=== PATIENT | female | born 1940 | race African-American/Black ===

== ENCOUNTER 2019-03-28 17:17 | Inpatient (IN) | payer MEDICARE, MEDICAID ==
[~2019-03-28] VITALS: Ht 165.1 cm; Wt 74.5 kg
[~2019-03-28 17:17] MED LIST: NAPROSYN500 M1 ORAL; TYLENOL EXTRA500 MG ORAL
[2019-03-28 17:25] VITALS: BP 125/82
--- NOTE | 2019-03-28 17:25 | NUR ---
ED Nurse Note: Pt was admitted to ED with the c/o of dyspnea and swelling arm. Pt is awake, alert, calm, able to verbalized her needs and able to follow commands. Placed on bed and gown, hooked to cardiac rehab nurse. Pt has a hx of CHF. Placed on supplemental oxygen of 2 liters per min per ERMD. Will continue to monitor.
[2019-03-28] MEDS ORDERED: ELIQUIS5 MG PO (17:27)
--- NOTE | 2019-03-28 17:30 | NUR ---
ED Nurse Note: Established IV site on LT AC with 22G intact and patent, obtained blood specimen sent to lab.
--- NOTE | 2019-03-28 17:40 | NUR ---
ED Nurse Note: Xray on bedside.
--- NOTE | 2019-03-28 17:50 | NUR ---
ED Nurse Note: Xray done.
--- NOTE | 2019-03-28 17:58 | NUR ---
ED Nurse Note: ABG done.
[2019-03-28 18:03] LABS: BASOPHILS % (AUTO) 1.2 % (0.0-2.0); EOSINOPHILS % (AUTO) 4.1 % (0.0-3.0); HEMATOCRIT 42.2 % (37.0-47.0); HEMOGLOBIN 13.7 G/DL (12.0-16.0); LYMPHOCYTES % (AUTO) 31.4 % (20.0-45.0); MEAN CORPUSCULAR VOLUME 93 FL (80-99); MONOCYTES % (AUTO) 6.7 % (1.0-10.0); NEUTROPHILS % (AUTO) 56.6 % (45.0-75.0); PLATELET COUNT 190 K/UL (150-450); RED BLOOD COUNT 4.55 M/UL (4.20-5.40); RED CELL DISTRIBUTION WIDTH 12.7 % (11.6-14.8)
[2019-03-28 18:16] LABS: ANION GAP 9 mmol/L (5-15); BLOOD UREA NITROGEN 18 mg/dL (7-18); CALCIUM 9.3 MG/DL (8.5-10.1); CARBON DIOXIDE 27 MMOL/L (21-32); CHLORIDE 104 MMOL/L (98-107); CREATININE 0.8 MG/DL (0.55-1.30); POTASSIUM 4.8 MMOL/L (3.5-5.1); SODIUM 140 MMOL/L (136-145)
[2019-03-28 18:29] LABS: ALANINE AMINOTRANSFERASE 17 U/L (12-78); ALBUMIN 3.7 G/DL (3.4-5.0); ALBUMIN/GLOBULIN RATIO 0.8 (1.0-2.7); ALKALINE PHOSPHATASE 70 U/L (46-116); ASPARTATE AMINO TRANSFERASE 14 U/L (15-37); BILIRUBIN,TOTAL 0.5 MG/DL (0.2-1.0)
[2019-03-28] MEDS ORDERED: METFORMIN HCL500 M1 ORAL (18:43)
[2019-03-28] MEDS ORDERED: DILTIAZEM 24HR180 M3 ORAL (18:43)
[2019-03-28] MEDS ORDERED: OMEPRAZOLE40 M1 ORAL (18:43)
[2019-03-28] MEDS ORDERED: VITAMIN D22000 UNIT PO (18:43)
[2019-03-28] MEDS ORDERED: STIOLTO RESPIMAT4 GM IH (18:43)
[2019-03-28] MEDS ORDERED: NAPROXEN500 M2 ORAL (18:43)
[2019-03-28] MEDS ORDERED: Calcium Gluconate 1gm/10ml vial IVP ONE (19:00)
--- NOTE | 2019-03-28 19:07 | Emergency Room Report ---
History of Present Illness General Chief Complaint: Dyspnea/Respdistress Source: Patient, Family Member Present Illness HPI 78-year-old female presents ED for evaluation. Daughter at bedside states that patient's been feeling short of breath for the last 4 to 5 days. History of COPD and CHF. She is normally on home oxygen but due to change in insurance oxygen was stopped and the tanks were taken away. History of CHF. Notes some leg swelling. Denies chest pain. Denies fevers or chills. States she is otherwise compliant with her medications. No other aggravating relieving factors. Denies any other associated symptoms Allergies: Coded Allergies: No Known Allergies (Unverified , 02/07/14) Patient History Past Medical History: DM, HTN, CHF, COPD Past Surgical History: none Pertinent Family History: none Social History: Denies: smoking, alcohol use, drug use Now: No Immunizations: UTD Reviewed Nursing Documentation: PMH: Agreed; PSxH: Agreed Nursing Documentation-PMH Past Medical History: No History, Except For Hx Cardiac Problems: Yes - CHF Hx Hypertension: Yes Hx Asthma: No Hx COPD: Yes Hx Diabetes: Yes Hx Cerebrovascular Accident: No Review of Systems All Other Systems: negative except mentioned in HPI Physical Exam Vital Signs Date Time Temp Pulse Resp B/P (MAP) Pulse Ox O2 Delivery O2 Flow Rate FiO2 03/28/19 17:23 97.0 88 21 128/65 (86) 100 Room Air 03/28/19 17:25 2.0 Sp02 EP Interpretation: reviewed, normal General Appearance: no apparent distress, alert, GCS 15, non-toxic Head: normocephalic, atraumatic Eyes: bilateral eye normal inspection, bilateral eye PERRL ENT: hearing grossly normal, normal pharynx, no angioedema, normal voice Neck: full range of motion, supple/symm/no masses Respiratory: chest non-tender, lungs clear, normal breath sounds, speaking full sentences Cardiovascular #1: regular rate, rhythm, no edema Cardiovascular #2: 2+ carotid (R), 2+ carotid (L), 2+ radial (R), 2+ radial (L) , 2+ dorsalis pedis (R), 2+ dorsalis pedis (L) Gastrointestinal: normal bowel sounds, non tender, soft, non-distended, no guarding, no rebound Rectal: deferred Genitourinary: normal inspection, no CVA tenderness Musculoskeletal: back normal, normal range of motion, gait/station normal, swelling - 1+ pitting edema b/l LEs Neurologic: alert, motor strength/tone normal, oriented x3, sensory intact, responsive, speech normal Psychiatric: judgement/insight normal, memory normal, mood/affect normal, no suicidal/homicidal ideation Reflexes: 3+ bicep (R), 3+ bicep (L), 3+ tricep (R), 3+ tricep (L), 3+ knee (R) , 3+ knee (L) Skin: other - see nursig skin notes Lymphatic: no adenopathy Medical Decision Making Diagnostic Impression: Primary Impression: CHF exacerbation Qualified Codes: I50.9 - Heart failure, unspecified Additional Impressions: COPD (chronic obstructive pulmonary disease) Qualified Codes: J44.9 - Chronic obstructive pulmonary disease, unspecified Bradycardia ER Course Hospital Course 78-year-old female presents ED complaining of shortness of breath, leg swelling Differential diagnoses include: MN/unstable angina, contusion, muscle strain, PTX, rib fracture Clinical course Patient placed on stretcher. on monitor worker. After initial history and physical I ordered labs, EKG, chest x-ray labs reviewed- no leukocytosis, hemoglobin/hematocrit stable, creatinine elevated, troponins negative, BNP elevated EKG - sinus bradycardia twave inversions in lateral leads interpreted by me Chest x-ray- cardiomegaly ABG no signfiicant hypoxia or hypercapnia Patient bradycardic to the 40s however denying any dizziness. patient normotensive. Mentating appropriately. Patient is on diltiazem. Given calcium in ED. No indication for pacing at this time. Because of insurance patient will be transferred I. I feel this is a highly complex case requiring extensive working including EKG/Rhythm strip, Xray/CT/US, Blood/urine lab work, repeat exams while in ED, and administration of strong opiates/narcotics for pain control, admission to hospital or close patient follow up. Diagnosis - CHF exacerbation, COPD, bradycardia transferred in serious condition Labs Test 03/28/19 17:41 03/28/19 17:55 Arterial Blood pH 7.391 (7.350-7.450) Arterial Blood Partial Pressure CO2 40.7 mmHg (35.0-45.0) Arterial Blood Partial Pressure O2 72.7 mmHg (75.0-100.0) Arterial Blood HCO3 24.1 mmol/L (22.0-26.0) Arterial Blood Oxygen Saturation 93.1 % (95-100) Arterial Blood Base Excess -0.7 (-2-2) Renny Test Positive White Blood Count 6.0 K/UL (4.8-10.8) Red Blood Count 4.55 M/UL (4.20-5.40) Hemoglobin 13.7 G/DL (12.0-16.0) Hematocrit 42.2 % (37.0-47.0) Mean Corpuscular Volume 93 FL (80-99) Mean Corpuscular Hemoglobin 30.0 PG (27.0-31.0) Mean Corpuscular Hemoglobin Concent 32.3 G/DL (32.0-36.0) Red Cell Distribution Width 12.7 % (11.6-14.8) Platelet Count 190 K/UL (150-450) Mean Platelet Volume 6.2 FL (6.5-10.1) Neutrophils (%) (Auto) 56.6 % (45.0-75.0) Lymphocytes (%) (Auto) 31.4 % (20.0-45.0) Monocytes (%) (Auto) 6.7 % (1.0-10.0) Eosinophils (%) (Auto) 4.1 % (0.0-3.0) Basophils (%) (Auto) 1.2 % (0.0-2.0) Sodium Level 140 MMOL/L (136-145) Potassium Level 4.8 MMOL/L (3.5-5.1) Chloride Level 104 MMOL/L (98-107) Carbon Dioxide Level 27 MMOL/L (21-32) Anion Gap 9 mmol/L (5-15) Blood Urea Nitrogen 18 mg/dL (7-18) Creatinine 0.8 MG/DL (0.55-1.30) Estimat Glomerular Filtration Rate mL/min (>60) Glucose Level 138 MG/DL (74-106) Calcium Level 9.3 MG/DL (8.5-10.1) Total Bilirubin 0.5 MG/DL (0.2-1.0) Aspartate Amino Transf (AST/SGOT) 14 U/L (15-37) Alanine Aminotransferase (ALT/SGPT) 17 U/L (12-78) Alkaline Phosphatase 70 U/L (46-116) Troponin I 0.006 ng/mL (0.000-0.056) Pro-B-Type Natriuretic Peptide 740 pg/mL (0-125) Total Protein 8.2 G/DL (6.4-8.2) Albumin 3.7 G/DL (3.4-5.0) Globulin 4.5 g/dL Albumin/Globulin Ratio 0.8 (1.0-2.7) EKG Diagnostic Results Rate: bradycardiac Rhythm: NSR ST Segments: no acute changes ASA given to the pt in ED: No Rhythm Strip Diag. Results EP Interpretation: yes Rhythm: NSR, no PVC's, no ectopy Chest X-Ray Diagnostic Results Chest X-Ray Diagnostic Results : Chest X-Ray Ordered: Yes # of Views/Limited/Complete: 1 View Indication: Shortness of Breath EP Interpretation: Yes Interpretation: no pneumothorax, other - cardiomegaly Impression: Other - CHF Electronically Signed by: Electronically signed by Nabil Bojorquez MD Last Vital Signs Date Time Temp Pulse Resp B/P (MAP) Pulse Ox O2 Delivery O2 Flow Rate FiO2 03/28/19 17:25 97.2 55 18 125/82 98 Nasal Cannula 2.0 Status: improved Disposition: XFER SHT-TRM HOSP Condition: Serious Referrals: Edson Cruz DO (PCP) Nabil Bojorquez MD Mar 28, 2019 19:07
--- NOTE | 2019-03-28 19:13 | NUR ---
HAND-OFF: Report given to KAE Broussard.
--- NOTE | 2019-03-28 19:15 | NUR ---
ED Nurse Note: Received report from KAE Houser.
[2019-03-28 19:17] VITALS: BP 130/68
--- NOTE | 2019-03-28 19:19 | NUR ---
ED Nurse Note: Patient sinus bradycardia, asymptomatic, ERMD aware.
--- NOTE | 2019-03-28 19:42 | NUR ---
ED Nurse Note: Patient assisted to void using bedpan, tolerated well.
--- NOTE | 2019-03-28 21:35 | NUR ---
ED Nurse Note: Report given to KAE Card at INU.
--- NOTE | 2019-03-28 21:40 | NUR ---
ED Nurse Note: Patient transported via gurney to SDU for Tele on monitor with 1 RN and technician inventory specialist in stable condition.
[2019-03-28] MEDS ORDERED: Albuterol/Ipratropium 3ml neb HHN PRN (22:00)
[2019-03-28] MEDS ORDERED: Miralax 17gm pkt ORAL PRN (22:00)
--- NOTE | 2019-03-28 22:00 | NUR ---
NURSE NOTES: pt received from [facility]. pt remains stable. pt is alert and oriented times 4, able to follow commands. pt is on 2 L NC, able to sat at 98%, no distress noted. pt is on desk monitor showing NSR, no distress noted. pt bed is low, locked, armed, bed rails up times 3. will follow plan of care. pt brought up with belongings. family member by bed side.
[2019-03-29] VITALS: BP_SYST 106; BP_SYST 130; BP_DIAS 40; BP_DIAS 71
[2019-03-29 04:00] VITALS: BP 134/74
[2019-03-29 05:58] LABS: ANION GAP 7 mmol/L (5-15); BLOOD UREA NITROGEN 18 mg/dL (7-18); CALCIUM 8.8 MG/DL (8.5-10.1); CARBON DIOXIDE 29 MMOL/L (21-32); CHLORIDE 105 MMOL/L (98-107); CREATININE 0.8 MG/DL (0.55-1.30); POTASSIUM 3.9 MMOL/L (3.5-5.1); SODIUM 141 MMOL/L (136-145)
[2019-03-29] MEDS: NovoLOG Insulin Flexpen SUBQ SCH ×3 (06:27→16:30)
--- NOTE | 2019-03-29 07:30 | NUR ---
HAND-OFF: Report given to TONYA PAL TELE. Pt remains stable. pt transferred with all belongings.
[2019-03-29 08:00] VITALS: BP 126/76
[2019-03-29] MEDS ORDERED: dilTIAZem HCl CD 180mg cap ORAL SCH (09:00)
--- NOTE | 2019-03-29 09:00 | NUR ---
PATIENT A/ O X 4 , VIATL SIGNS STABLE. NO C/O PAIN . SKIN INTACT OXYGEN SAT 96% @ 2 L N/A. IV INTACT AND PATENT. ALL NEEDS MET AND CALL LIGHT WITH IN REACH, BED ALARM ON, RAILS UP X 2 FOR SAFETY REASONS.
[2019-03-29] MEDS: Eliquis 5mg tablet ORAL SCH ×2 (09:42→17:23)
--- NOTE | 2019-03-29 11:15 | NUR ---
TRANSFER UPDATE RECEIVED CALL FROM [facility], [place] T: [phone] PATIENT IS OUT OF NETWORK AND DOES NOT BELONG AT [facility] PER [place] PATIENT HAS A BED AT [facility] T: [phone] FOR NURSE TO NURSE REPORT FOR TRANSPORT USE "[facility]" AUTH #[id number] ACCEPTING PHYSICIAN IS DR ALDANA PER DR HUGHES HE WILL BE IN THIS AFTERNOON AND WILL DECIDE IF PATIENT IS STABLE FOR TRANSFER Addendum: 03/29/19 at 1212 by ARIK SHELTON LVN PICKUP TIME @1:30PM
--- NOTE | 2019-03-29 11:30 | NUR ---
CARDIOLOGY: LUIZ BOWER [id number] ROOM 211-1 2-D ECHO REPORT : Normal left ventriuclar chamber size . Global left ventricular hypokiensis . Left ventricular ejection fraction estimated to be 40 %. Mild left ventricular hypertrophy. No pericardial effusion. Right atrial size at upper limits of normal. Left atrial chamber size is within normal limits. Focal aortic valve sclerosis with adequate cusp excursion. Thickened mitral valve leaflets with normal excursion. Moderate mitral annulus and aortic root calcification. Pulmonic valve not well visualized. Normal tricuspid valve structure. IVC at size 2.1 cm without physiologic collapse. A color flow and spectral Doppler study was performed and revealed: No aortic insufficiency. Trace mitral regurgitation. Mitral diastolic velocities suggest reduced left ventricular relaxation c/w mild LV diastolic dysfunction (Grade I ). Trace tricuspid regurgitation. Tricuspid systolic velocities suggests peak right ventricular systolic pressure of 18mmHg.
--- NOTE | 2019-03-29 11:48 | Consultation ---
History of Present Illness General Date patient seen: Mar 29, 2019 Chief Complaint: Dyspnea/Respdistress Present Illness HPI 78-year-old female with hx of DM, HTN, CHF, COPD, on home O2 presented to ED for evaluation of short of breath for the last 4 to 5 days. She has some leg swelling as well. Denies chest pain. Denies fevers or chills. She was found to be pulmonary edema and is admitted to telemetry for further management. Allergies: Coded Allergies: No Known Allergies (Unverified , 02/07/14) Medication History Scheduled Apixaban (Eliquis), 5 MG PO BID, (Reported) Diltiazem HCl (Diltiazem 24HR Cd), 360 MG ORAL DAILY, (Reported) Ergocalciferol (Vitamin D2) (Vitamin D2), 50,000 UNIT PO QWEEK, (Reported) Metformin Hcl* (Metformin Hcl*), 500 MG ORAL TWICE A DAY, (Reported) Naproxen* (Naproxen*), 500 MG ORAL TWICE A DAY, (Reported) Omeprazole (Omeprazole), 40 MG ORAL DAILY, (Reported) Tiotropium Br/Olodaterol HCl (Stiolto Respimat Inhal Adel), 4 GM IH PRN, ( Reported) Discontinued Medications Acetaminophen* (Tylenol Extra Strength*), 500 MG ORAL Q8H PRN for Prn Headache/ Temp > 101 Discontinued Reason: Pt stopped taking med Naproxen* (Naprosyn*), 500 MG ORAL TWICE A DAY Discontinued Reason: Pt stopped taking med Patient History Healthcare decision maker pt self. Resuscitation status Full Code Advanced Directive on File No Past Medical/Surgical History Past Medical/Surgical History: (1) Diabetes mellitus (2) COPD (chronic obstructive pulmonary disease) (3) Osteoarthritis Review of Systems All Other Systems: negative except mentioned in HPI Physical Exam General Appearance: WD/WN Lines, tubes and drains: peripheral HEENT: normocephalic, atraumatic Neck: non-tender, normal alignment Respiratory/Chest: chest wall non-tender, lungs clear Breasts: no masses Cardiovascular/Chest: normal peripheral pulses Abdomen: normal bowel sounds Genitourinary/Rectal: normal genital exam Extremities: normal range of motion Skin Exam: normal pigmentation Neurologic: sole splitter II-XII grossly normal Last 24 Hour Vital Signs Date Time Temp Pulse Resp B/P (MAP) Pulse Ox O2 Delivery O2 Flow Rate FiO2 03/29/19 09:41 95 126/76 03/29/19 08:00 96.7 95 20 126/76 (93) 95 03/29/19 08:00 Nasal Cannula 2.0 03/29/19 07:02 92 Nasal Cannula 2.0 28 03/29/19 07:02 60 15 92 Nasal Cannula 2.0 28 03/29/19 04:00 97.5 60 16 134/74 (94) 98 03/29/19 04:00 Nasal Cannula 2.0 03/29/19 04:00 58 03/29/19 04:00 2.0 03/29/19 00:00 57 03/29/19 00:00 2.0 03/29/19 00:00 97.3 60 19 130/71 (90) 93 03/29/19 00:00 Nasal Cannula 2.0 03/28/19 23:07 Nasal Cannula 2.0 03/28/19 22:00 53 03/28/19 21:40 97.5 44 17 132/82 98 Nasal Cannula 2.0 03/28/19 20:42 97.0 03/28/19 19:17 97.0 43 19 130/68 96 Nasal Cannula 2.0 03/28/19 17:25 97.2 55 18 125/82 98 Nasal Cannula 2.0 03/28/19 17:25 86 18 Room Air 03/28/19 17:23 97.0 88 21 128/65 (86) 100 Room Air Intake and Output 03/28/19 03/29/19 19:00 07:00 Intake Total 0 ml Output Total 900 ml Balance -900 ml Intake Oral 0 ml Output Urine Total 900 ml # Voids 3 Laboratory Tests Test 03/28/19 17:41 03/28/19 17:55 03/29/19 04:20 Arterial Blood pH 7.391 (7.350-7.450) Arterial Blood Partial Pressure CO2 40.7 mmHg (35.0-45.0) Arterial Blood Partial Pressure O2 72.7 mmHg (75.0-100.0) L Arterial Blood HCO3 24.1 mmol/L (22.0-26.0) Arterial Blood Oxygen Saturation 93.1 % (95-100) L Arterial Blood Base Excess -0.7 (-2-2) Renny Test Positive White Blood Count 6.0 K/UL (4.8-10.8) Red Blood Count 4.55 M/UL (4.20-5.40) Hemoglobin 13.7 G/DL (12.0-16.0) Hematocrit 42.2 % (37.0-47.0) Mean Corpuscular Volume 93 FL (80-99) Mean Corpuscular Hemoglobin 30.0 PG (27.0-31.0) Mean Corpuscular Hemoglobin Concent 32.3 G/DL (32.0-36.0) Red Cell Distribution Width 12.7 % (11.6-14.8) Platelet Count 190 K/UL (150-450) Mean Platelet Volume 6.2 FL (6.5-10.1) L Neutrophils (%) (Auto) 56.6 % (45.0-75.0) Lymphocytes (%) (Auto) 31.4 % (20.0-45.0) Monocytes (%) (Auto) 6.7 % (1.0-10.0) Eosinophils (%) (Auto) 4.1 % (0.0-3.0) H Basophils (%) (Auto) 1.2 % (0.0-2.0) Sodium Level 140 MMOL/L (136-145) 141 MMOL/L (136-145) Potassium Level 4.8 MMOL/L (3.5-5.1) 3.9 MMOL/L (3.5-5.1) Chloride Level 104 MMOL/L (98-107) 105 MMOL/L (98-107) Carbon Dioxide Level 27 MMOL/L (21-32) 29 MMOL/L (21-32) Anion Gap 9 mmol/L (5-15) 7 mmol/L (5-15) Blood Urea Nitrogen 18 mg/dL (7-18) 18 mg/dL (7-18) Creatinine 0.8 MG/DL (0.55-1.30) 0.8 MG/DL (0.55-1.30) Estimat Glomerular Filtration Rate mL/min (>60) mL/min (>60) Glucose Level 138 MG/DL (74-106) H 93 MG/DL (74-106) Calcium Level 9.3 MG/DL (8.5-10.1) 8.8 MG/DL (8.5-10.1) Total Bilirubin 0.5 MG/DL (0.2-1.0) Aspartate Amino Transf (AST/SGOT) 14 U/L (15-37) L Alanine Aminotransferase (ALT/SGPT) 17 U/L (12-78) Alkaline Phosphatase 70 U/L (46-116) Troponin I 0.006 ng/mL (0.000-0.056) 0.011 ng/mL (0.000-0.056) Pro-B-Type Natriuretic Peptide 740 pg/mL (0-125) H Total Protein 8.2 G/DL (6.4-8.2) Albumin 3.7 G/DL (3.4-5.0) Globulin 4.5 g/dL Albumin/Globulin Ratio 0.8 (1.0-2.7) L Height (Feet): 5 Height (Inches): 5.00 Weight (Pounds): 164 Medications Current Medications Medications (Trade) Dose Ordered Sig/Cherrie Route PRN Reason Start Time Stop Time Status Last Admin Dose Admin Acetaminophen (Tylenol) 650 mg Q4H PRN ORAL Fever 03/28/19 22:00 04/27/19 21:59 03/29/19 01:37 Albuterol/ Ipratropium (Albuterol/ Ipratropium) 3 ml EVERY 4 HOURS PRN HHN Shortness of Breath 03/28/19 22:00 04/02/19 21:59 Apixaban (Eliquis) 5 mg BID ORAL 03/29/19 09:00 04/28/19 08:59 03/29/19 09:42 Dextrose (Dextrose 50%) 25 ml Q30M PRN IV Hypoglycemia 03/28/19 22:00 04/27/19 21:59 Dextrose (Dextrose 50%) 50 ml Q30M PRN IV Hypoglycemia 03/28/19 22:00 04/27/19 21:59 Diltiazem HCl (Cardizem CD) 360 mg DAILY ORAL 03/29/19 09:00 04/28/19 08:59 03/29/19 09:41 Furosemide (Lasix) 40 mg EVERY 8 HOURS IV 03/28/19 22:00 04/27/19 21:59 03/29/19 06:28 Insulin Aspart (NovoLOG) BEFORE MEALS AND HS SUBQ 03/29/19 06:30 04/28/19 06:29 Ondansetron HCl (Zofran) 4 mg Q6H PRN IVP Nausea & Vomiting 03/28/19 22:00 04/27/19 21:59 Polyethylene Glycol (Miralax) 17 gm DAILYPRN PRN ORAL Constipation 03/28/19 22:00 04/27/19 21:59 Temazepam (Restoril) 15 mg HSPRN PRN ORAL Insomnia 03/28/19 22:00 04/04/19 21:59 Assessment/Plan Problem List: (1) CHF exacerbation ICD Codes: I50.9 - Heart failure, unspecified SNOMED: 779427134, [id number] Qualifiers: Qualified Codes: I50.9 - Heart failure, unspecified (2) COPD (chronic obstructive pulmonary disease) ICD Codes: J44.9 - Chronic obstructive pulmonary disease, unspecified SNOMED: 51938826 Qualifiers: Qualified Codes: J44.9 - Chronic obstructive pulmonary disease, unspecified (3) Diabetes mellitus ICD Codes: E11.9 - Type 2 diabetes mellitus without complications SNOMED: 46371046 (4) On home O2 ICD Codes: Z99.81 - Dependence on supplemental oxygen SNOMED: 887017916332 Assessment/Plan: respiratory treatment titrate fio2 diuretic echo check cxr and bnp in am Austin Acevedo MD Mar 29, 2019 11:48
[2019-03-29] MEDS ORDERED: DEMADEX10 MG IV (11:49)
[2019-03-29 12:11] VITALS: BP 131/67
--- NOTE | 2019-03-29 14:08 | NUR ---
RADIOLOGY DEPT., CHEST X-RAY PERFORMED ON ADMIT.OLIMPIA
--- NOTE | 2019-03-29 14:20 | NUR ---
PATIENT REFUSED TO BE DISCHARGE ORDERED BY HCP. DIETETIC ASSISTANT / CHARGE NURSE NOTIFIED, HCP MADE AWARE.
[2019-03-29 16:00] VITALS: BP 145/79
--- NOTE | 2019-03-29 16:50 | NUR ---
CASE MANAGEMENT: INITIAL REVIEW 78 YR OLD FEMALE FROM HOME CC: DYSPNEA . RESP DISTRESS SI: CHF . COPD . GARCÍA CARDIA 97.0 88 21 128/65 100% ON RA BG 138 BNP 740 pO2 72.7 O2 SAT 93.1 IS: IV CALCIUM GLUCONATE X1 TYLENOL PO X1 \: 2E TELE UNIT PLAN: PATIENT IS OUT OF NETWORK TX TO [facility]
--- NOTE | 2019-03-29 17:45 | History and Physical Report ---
DATE OF ADMISSION: 03/28/2019 TIME AND DATE SEEN: 03/29/2019 at 2 a.m. CONSULTANTS: 1. Austin Acevedo M.D. 2. Dandy Carroll M.D. CHIEF COMPLAINT: Shortness of breath, bradycardia, CHF exacerbation. BRIEF HISTORY: This is a 78-year-old female, who lives at home, presented with above-mentioned diagnoses, admitted to telemetry for further care. Currently, O2 NC, calm in bed, refusing to be transferred. REVIEW OF SYSTEMS: No chest pain. Slight short of breath. No nausea, vomiting, or diarrhea. PAST MEDICAL HISTORY: Hypertension, diabetes, congestive heart failure. PAST SURGICAL HISTORY: Hysterectomy. MEDICATIONS: Include Eliquis, Cardizem, NovoLog, Lasix, Restoril, Zofran, albuterol. ALLERGIES: None known. SOCIAL HISTORY: No smoking. No alcohol. No intravenous drug abuse. FAMILY HISTORY: Noncontributory. PHYSICAL EXAMINATION: GENERAL: Calm in bed, oriented x3. Slight short of breath. VITAL SIGNS: Temperature 98, pulse 60, respirations 20, blood pressure 131/67. CARDIOVASCULAR: No murmur. LUNGS: Poor air exchange. ABDOMEN: Bowel sounds distant. EXTREMITIES: No cyanosis or edema. NEUROLOGIC: The patient moves all extremities, slightly weak. LABORATORY DATA: Labs, at this time, show CBC is normal. BMP is normal now. Troponin 0.011. BNP is 740. ASSESSMENT: 1. CHF exacerbation. 2. Short of breath. 3. Bradycardia. 4. Hypertension. 5. Diabetes. PLAN: 1. PT, dietary evaluation. 2. O2 and pulmonary treatment. 3. Resume home medications. 4. Diurese. 5. Blood pressure, blood sugar control. 6. Transfer if HMO arrange. 7. We will continue to follow this patient. Edson Cruz D.O. DR: SHAQ JOB#: [id number] CC:
--- NOTE | 2019-03-29 17:45 | NUR ---
SN CALLED [facility], [employer] TEACHER TIME 193 PER [facility]
--- NOTE | 2019-03-29 19:07 | Diagnostic Imaging Report ---
Indication: Chest pain Technique: One view of the chest Comparison: none Findings: The heart is enlarged. There is mild bilateral diffuse interstitial congestion. No focal airspace consolidation. No effusion Impression: Cardiomegaly. Mild interstitial congestion
[2019-03-29] MEDS ORDERED: NS 275ml ONE (19:29)
[2019-03-29] MEDS ORDERED: D5 1/2NS 1000ml IV ONE (19:29)
[2019-03-29] MEDS ORDERED: Tubing IV Secondary IV ONE (19:29)
--- NOTE | 2019-03-29 19:32 | NUR ---
HAND-OFF: Report given to MADDY PAL.
--- NOTE | 2019-03-29 19:35 | NUR ---
REPORT GIVEN TO DAMIR RN .PATIENT WILL BE TRANSFERRED TO [facility] 505 TRANSACTION MANAGER TIME 2110
--- NOTE | 2019-04-01 11:24 | NUR ---
CASE MANAGEMENT: CM review and clinical information (face sheet/ H&P/ ER MD report) faxed to [facility] @ [phone]. T#[id number].
--- NOTE | 2019-04-02 12:27 | Discharge Summary ---
Discharge Summary Discharge Summary _ Chest summary DATE OF ADMISSION: 03/28/2019 DATE OF DISCHARGE: 03/29/2019 DISCHARGED BY: Dr. Vega REASON FOR ADMISSION: 78 years old female resident of long term facility with past medical history of diabetes mellitus, pretension, CHF, COPD, presented with the shortness of breath worsening for the last 4 to 5 days. Patient is normally home oxygen but due to change in insurance oxygen was stopped and he thinks that they can elevate peak. No chest pain no fevers or chills patient reported some leg swelling. Upon evaluation vital signs are stable. Pulse oximetry 100 % on 2 L of oxygen via nasal cannula. Echocardiogram preliminary report revealed decreased ejection fraction of 40% with global left ventricular hypokinesis. Mild left ventricular hypertrophy. Right ventricular systolic pressure of 18. ABG on O2 via nasal cannula were stable. Laboratory work-up revealed no leukocytosis stable hemoglobin hematocrit. Stable electrolytes renal parameters. Troponin negative. proBNP 76. EKG reveals sinus rhythm no acute ischemic changes. Chest x-ray revealed cardiomegaly. Patient subsequently admitted for further management. Patient admitted to telemetry floor. Patient started on diuretics. Supplemental oxygen provided and titrated to keep pulse oximetry above 92%. Pulmonary toilet with bronchodilator provided as needed. Home medication continue acute including Cardizem and Eliquis patient was on IV Lasix with close monitoring of volumes and cardiorenal parameters. Blood sugar was managed with sliding scale of insulin. Supportive care provided. Repeated troponin was negative. Patient was also done it for transfer was arranged to [facility]. Patient was stable for transfer CONSULTANTS: rouge miller neurologist pulmonary Dr. Charles Acevedo ID specialist GI specialist mailroom assistant biostatistics manager/oncologist surgery psychiatrist HOSPITAL COURSE: [] FINAL DIAGNOSES: 1. [] CHF exacerbation Cardiomyopathy ejection fraction 40% COPD Diabetes mellitus Hypertension Bradycardia On home O2 DISCHARGE MEDICATIONS: See Medication Reconciliation list. DISCHARGE INSTRUCTIONS: [] Patient was discharged to the long term facility. Follow up with medical doctor at the facility. I have been assigned to dictate discharge summary for this account. I was not involved in the patient's management. Jania Rodriguez NP Apr 02, 2019 12:27
== END 2019-03-29 19:30 | disposition short-term general hospital (02) | DRG 293 ==
LOC: EMR 18:10 → 2W 20:28 → EDBEDREQ 21:21 → 2E 03-29 07:52
DX: I11.0 Hypertensive heart disease with heart failure (principal); I50.9 Heart failure, unspecified; Z79.01 Long term (current) use of anticoagulants; Z79.4 Long term (current) use of insulin; E11.9 Type 2 diabetes mellitus without complications; R00.1 Bradycardia, unspecified; J44.9 Chronic obstructive pulmonary disease, unspecified; M19.90 Unspecified osteoarthritis, unspecified site; Z99.81 Dependence on supplemental oxygen; I42.9 Cardiomyopathy, unspecified
CPT/HCPCS: 36415; 36600; 71045; 80048; 80053; 82803; 82962; 83880; 84484; 85025; 93005; 93306; 94664; 96374; 99285; J1815